=== PATIENT | male | born 1955 | race Caucasian/White ===

== ENCOUNTER → 2020-05-31 | Outpatient (CLI) | payer MEDICARE | END | disposition home or self-care (01) | LOC: LABWHC1 15:32 | PROVIDERS: ATTEND Internal Medicine Critical Care Medicine | DX: J18.9 Pneumonia, unspecified organism (principal); Z53.9 Procedure and treatment not carried out, unspecified reason | CPT/HCPCS: 36415; 86769 ==

== ENCOUNTER → 2020-06-12 | Outpatient (CLI) | payer MEDICARE | END | disposition home or self-care (01) | LOC: LABWHC1 13:26 | PROVIDERS: ATTEND Internal Medicine Critical Care Medicine | DX: J18.9 Pneumonia, unspecified organism (principal) | CPT/HCPCS: 86769; 36415; C9803 ==

== ENCOUNTER → 2020-10-16 | Outpatient (CLI) | payer MEDICARE ==
--- NOTE | 2020-10-17 06:30 | CT ---
EXAMINATION TYPE: CT chest wo con DATE OF EXAM: 10/16/2020 COMPARISON: Prior chest x-rays May 31, 2020 and September 22, 2020 HISTORY: h/o pneumonia CT DLP: 816.8 mGycm. Automated Exposure Control for Dose Reduction was Utilized. TECHNIQUE: CT scan of the thorax is performed without IV contrast. High resolution protocol with 1 m m sequences obtained in 10 mm intervals in supine and prone technique. FINDINGS: LUNGS: There is peripheral reticulation and intralobular septal thickening seen bilaterally involving upper and lower lungs with slightly more prominent involvement in the lower lungs particularly the r ight lung base where there is honeycombing evident. There is AP elongation of the trachea. There is m [id number] central bronchiectasis. No pleural effusion. No pulmonary masses. MEDIASTINUM: Lack of IV contrast and technique are noted to limit evaluation for mediastinal and mary cially hilar adenopathy. There are no definitive greater than 1 cm mediastinal lymph nodes. No signif icant pericardial effusion is seen. Mild cardiomegaly. Coronary artery calcification is present. Prom inent right and left pulmonary arteries suggesting underlying pulmonary artery hypertension. OTHER: Right greater than left flank shaped subareolar gynecomastia. Cholecystectomy clips some corti jeff thinning in both kidneys. Multilevel spurring in the spine. IMPRESSION: Moderate to advanced diffuse pulmonary fibrotic changes bilaterally greatest in the perip abel and slightly more prominent in the lower lungs could reflect IPF.
== END | disposition home or self-care (01) ==
LOC: RADCTMAIN 18:10
PROVIDERS: ATTEND Internal Medicine Critical Care Medicine
DX: J84.10 Pulmonary fibrosis, unspecified (principal)
CPT/HCPCS: 71250

== ENCOUNTER 2021-01-13 18:24 | Emergency (ER) | payer MEDICARE ==
[2021-01-13 18:50] VITALS: BP 146/74; PULSE 90; RESP 19; TEMP 99
--- NOTE | 2021-01-13 19:54 | ED ---
General Adult HPI - General Chief complaint: Upper Respiratory Infection Stated complaint: Covid+,Wants antibody Time Seen by Provider: 01/13/21 19:29 Source: patient Mode of arrival: ambulatory Limitations: no limitations - History of Present Illness Initial comments: Dictation was produced using [employer] dictation software. please excuse any gramma tical, word or spelling errors. Chief Complaint: 65-year-old male presents requesting coronavirus monoclonal antibodies. History of Present Illness: 65-year-old male presents to the emergency department with positive coronavirus test. Patient taken at home test and was positive. He's been symptomatic for 4-5 days. He has past medical history of pulmonary fibrosis. Reports that he only has 72% lung capacity. He sees a outdoor power equipment mechanic. Patient taken at home test that was positive. Is not sure how he got coronavirus but by people in his family are positive. His symptoms or co ngestion, no dyspnea and cough. The ROS documented in this emergency department record has been reviewed and confirmed by me. Those systems with pertinent positive or negative responses have been documented in the HPI. All other systems are other negative and/or noncontributory. PHYSICAL EXAM: General Impression: Alert and oriented x3, not in acute distress HEENT: Normocephalic atraumatic, extra-ocular movements intact, pupils equal and reactive to light bilaterally, mucous membranes moist. Cardiovascular: Heart regular rate and rhythm Chest: Able to complete full sentences, no retractions, no tachypnea Musculoskeletal: Pulses present and equal in all extremities, no peripheral edema Motor: no focal deficits noted Neurological: CN II-XII grossly intact, no focal motor or sensory deficits noted Skin: Intact with no visualized rashes Psych: Normal affect and mood ED course: 65-year-old male with at-home positive coronavirus test presents emergency department for monoclonal antibodies. States that he is not vaccinated but he did have covid earlier this year.. Vital signs upon arrival are within acceptable limits. He is 96% on room air. Patient had positive coronavirus test. Patient given multiple antibodies. Observed in the emergency department for one hour after monoclonal antibody administration. Patient stable for discharge. - Related Data Allergies Allergy/AdvReac Type Severity Reaction Status Date / Time No Known Allergies Allergy Verified 01/13/21 18:49 Review of Systems ROS Statement: Those systems with pertinent positive or pertinent negative responses have been documented in the HPI. ROS Other: All systems not noted in ROS Statement are negative. Past Medical History Additional Past Medical History / Comment(s): idiopathic pulmonary fibrosis History of Any Multi-Drug Resistant Organisms: None Reported Past Surgical History: Hernia Repair Smoking Status: Former smoker Past Alcohol Use History: None Reported Past Drug Use History: None Reported General Exam Limitations: no limitations Course Vital Signs 01/13/21 18:46 Temperature 99.0 F Pulse Rate 90 Respiratory 19 Rate Blood Pressure 146/74 O2 Sat by Pulse 96 Oximetry Medical Decision Making - Lab Data Lab Results 01/13/21 Range/Units 19:45 Coronavirus (PCR) Detected A (Not Detectd) Disposition Clinical Impression: COVID-19 Disposition: HOME SELF-CARE Condition: Fair Instructions (If sedation given, give patient instructions): Coronavirus Disease 2019 (COVID-19) Is patient prescribed a controlled substance at d/c from ED?: No Referrals: Aron Sy MD [Primary Care Provider] - 1-2 days
[2021-01-13] MEDS ORDERED: SODIUM CHLORIDE 0.9% 50 ML IVPB ONE (21:15)
[2021-01-13] MEDS ORDERED: CASIRIVIMAB/IMDEVIMAB (EUA) 1,200 MG in SODIUM CHLORIDE 0.9% 100 ML IVPB ONE (21:15)
== END 2021-01-13 23:25 | disposition home or self-care (01) ==
LOC: EC 18:24
DX: U07.1 COVID-19 (principal); Z87.891 Personal history of nicotine dependence
CPT/HCPCS: 99283; 87635; Q0243

== ENCOUNTER → 2021-05-15 | Outpatient (CLI) | payer MEDICARE ==
[2021-05-15 19:11] LABS: ALT 34 U/L (10-49); AST 25 U/L (14-35); Albumin 4.3 g/dL (3.8-4.9); Albumin/Globulin Ratio 1.55 (1.60-3.17); Alkaline Phosphatase 81 U/L (41-126); Bilirubin, Conjugated <0.20 mg/dL (0.20-0.40); Globulin 2.8 g/dL (1.6-3.3); Total Protein 7.1 g/dL (6.2-8.2)
== END | disposition home or self-care (01) ==
LOC: LABWHC1 11:17
PROVIDERS: ATTEND Internal Medicine Critical Care Medicine
DX: J84.112 Idiopathic pulmonary fibrosis (principal)
CPT/HCPCS: 36415; 80076

== ENCOUNTER → 2021-12-04 | Outpatient (CLI) | payer MEDICARE ==
[2021-12-04 21:57] LABS: ALT 35 U/L (10-49); AST 25 U/L (14-35); Albumin 4.3 g/dL (3.8-4.9); Albumin/Globulin Ratio 1.59 (1.60-3.17); Alkaline Phosphatase 72 U/L (41-126); Bilirubin, Conjugated <0.20 mg/dL (0.20-0.40); Globulin 2.7 g/dL (1.6-3.3)
== END | disposition home or self-care (01) ==
LOC: LABWHC1 12:17
PROVIDERS: ATTEND Internal Medicine Critical Care Medicine
DX: J84.112 Idiopathic pulmonary fibrosis (principal)
CPT/HCPCS: 36415; 80076

== ENCOUNTER → 2022-11-18 | Outpatient (CLI) | payer MEDICARE ==
[2022-11-18 15:06] LABS: African American GFR (CKD) >90 (>60 ml/min/1.73 sqM); Blood Urea Nitrogen 10 mg/dL (9-20); Non-African American GFR(CKD) 89 (>60 ml/min/1.73 sqM)
--- NOTE | 2022-11-18 22:07 | CT ---
EXAMINATION TYPE: CT chest w con CT DLP: 331.7 mGycm, Automated exposure control for dose reduction was used. DATE OF EXAM: 11/18/2022 3:26 PM COMPARISON: CT 10/16/2020. CLINICAL INDICATION:Male, 67 years old with history of J84.112 Pulmonary fibrosis; PHH, Pulmonary Fib rosis. TECHNIQUE: Multiple axial images were obtained through the chest. Sagittal and coronal reformats were created for review. Contrast used:100 ml mL of Isovue 300 with IV Contrast (None if empty) Oral contrast used: (None if empty) FINDINGS: LUNGS/ PLEURA: There is scattered fibrotic change with peripheral reticulation, centrilobular and par aseptal emphysema changes. Cystic changes mostly along the periphery. No definitive honeycombing visu alized. No air trapping visualized. AIRWAY: Patent and unremarkable. There are scattered mild bronchiectasis. No significant bronchial wa ll thickening appreciated. HEART: Size within normal limits. Moderate coronary artery calcifications are present. MEDIASTINUM: No gross evidence of adenopathy. VASCULATURE: Atherosclerotic calcifications are present throughout the aorta and its branches. No fi lling defect to suggest pulmonary embolus. MUSCULOSKELETAL: Mild disc degeneration changes are present throughout the thoracolumbar spine. SOFT TISSUES/LYMPH NODES: Unremarkable. LOWER NECK: No significant findings. UPPER ABDOMEN: The gallbladder surgically absent. Left adrenal nodule which is indeterminate measurin g up to 15 mm. This is unchanged from prior. IMPRESSION: 1. Overall there is a relatively stable changes compared 10/16/2020 with fibrotic changes throughout the lungs. Findings predominantly along the periphery could represent sequela prior atypical pneumoni a versus are back lung disease. 2. Stable left adrenal 15 mm nodule. 3. Moderate coronary artery calcifications. 4. Small hiatal hernia.
== END | disposition home or self-care (01) ==
LOC: RADCTMAIN 13:50
PROVIDERS: ATTEND Internal Medicine Critical Care Medicine
DX: J84.112 Idiopathic pulmonary fibrosis (principal); K44.9 Diaphragmatic hernia without obstruction or gangrene; I25.10 Atherosclerotic heart disease of native coronary artery without angina pectoris; E27.8 Other specified disorders of adrenal gland
CPT/HCPCS: 82565; 84520; 71260; 36415; Q9967